=== PATIENT | female | born 2005 | race Caucasian/White ===

== ENCOUNTER 2023-04-22 13:38 | Day surgery (SDC) | payer BC ==
[2023-04-22] MEDS ORDERED: Cyclopentolate W/ Phenylephrin 5 ML BOT ONE (14:00)
[2023-04-22] MEDS ORDERED: EPINEPHrine 0.3 MG in Ophthalmic Irrigation Solution 500 ML IRR SCH (14:30)
[2023-04-22] MEDS ORDERED: fentaNYL PF 100 MCG/2 ML SYRINGE ONE (17:40)
[2023-04-22] MEDS ORDERED: Midazolam HCl 2 mg/2 ml Vial ONE (17:40)
[2023-04-22] MEDS ORDERED: Lidocaine 1% PF 5 ML VIAL ONE (18:01)
[2023-04-22] MEDS ORDERED: PROPOFOL 200 MG/20 ML VIAL ONE (18:01)
[2023-04-22] MEDS ORDERED: diphenhydrAMINE 50 MG/ML VIAL ONE (18:01)
[2023-04-22] MEDS ORDERED: Ondansetron PF 4 MG/2 ML Vial ONE (18:01)
[2023-04-22] MEDS ORDERED: Metoclopramide HCl 10 MG/2 ML VIAL ONE (18:01)
[2023-04-22] MEDS ORDERED: Dexamethasone 20 MG/5 ML VIAL ONE (18:01)
== END 2023-04-22 21:55 | disposition home or self-care (01) ==
LOC: SDC 13:38
PROVIDERS: ATTEND Ophthalmology Retina Specialist
PROC: 08U10JZ Supplement of Left Eye with Synthetic Substitute, Open Approach (ICD-10-PCS; principal; 2023-04-22)
DX: H33.022 Retinal detachment with multiple breaks, left eye (principal)
CPT/HCPCS: C1776; J0171; J1100; J1200; J2250; J2405; J2704; J2765